=== PATIENT | male | born 1990 | race Caucasian/White ===

== ENCOUNTER 2017-03-04 14:41 | Emergency (ER) | payer SELFPAY ==
[2017-03-04 14:49] VITALS: BP 155/87; BMI 28.5
--- NOTE | 2017-03-04 17:33 | DR.GENAD ---
HPI - PCP Primary Care Physician: JOSE - HPI Comment HPI Comment: WORSE TODAY. NO FEVER. NO COUGH, CONGESTION OR DYSURIA. - Complaint/Symptoms Chief Complaint Doctors Comments: CHEST PAIN, BODYACHES, DIZZINESS TIMES FOR FEW DAYS. Chief Complaint:: CHEST PAIN, DIZZY, BODY ACHES, HURTS WHEN TAKES DEEP BREATHE Self Treatment fo Chief Complaint: BEEN HAVING HEART BURN AND PAIN FOR ABOUT A MONTH - Nurses notes reviewed Nurses Notes Review: Yes - Source History Provided: Patient - Mode of Arrival Mode of Arrival: In Arms - Timing Onset of Chief Complaint: 03/02/17 Came on: Suddenly - Duration Duration: Constant Duration: Days - Severity Severity: Moderate PMH - PMH Past Medical History: Yes Past Medical History: Hypertension Past Surgical History: No Surgical History: No History - Family History History of Family Medical Conditions: Yes Family Medical History: Diabetes Mellitus, Hypertension - Social History Does patient currently use any type of tobacco product: Yes Have you used tobacco products in the last 12 months: Yes Type of Tobacco Use: Smokeless Does any household member use tobacco: Yes Alcohol Use: Occasionally Do you use any recreational Drugs:: No Lives With: Family Lives Where: Home - infectious screening In the last 2 months have you had wt loss of >10#?: NO Have you had fever, night sweats or hemotysis?: No Have you traveled outside the country in the last 6 months?: No Isolation: Standard ROS - Review of Systems Constitutional: No Symptoms Reported Eyes: No Symptoms Reported ENTM: No Symptoms Reported Respiratoy: No Symptoms Reported Cardiovascular: Chest Pain Gastrointestinal/Abdominal: No Symptoms Reported Genitourinary: No Symptoms Reported Neurological: No Symptoms Reported, Dizziness Musculoskeletal: No Symptoms Reported Integumentary: No Symptoms Reported Hematologic/Lymphatic: No Symptoms Reported Endocrine: No Symptoms Reported All Other Systems: Reviewed and Negative PE - Vital Signs Vitals: Temperature 97.1 F Pulse Rate 79 Respiratory Rate 20 Blood Pressure 155/87 O2 Sat by Pulse Oximetry 100 - General Limitations: No Limitations General Appearance: Alert - Head Head Exam: Normal Inspection - Eyes Eye exam: Normal Appearance - ENT ENT Exam: Normal External Ear Exam External Ear Exam: Normal External Inspection TM/Canal Exam: Bilateral Normal Nose Exam: Normal Nose Exam Mouth Exam: Normal Inspection Throat Exam: Normal Inspection - Neck Neck Exam: Normal Inspection - Chest Chest Inspection: Symmetric Chest Wall Rise - Respiratory Respiratory Exam: Normal Lung Sounds Bilat Respiratory Exam: Bilateral Clear to Auscultation - Cardiovascular Cardiovascular Exam: Regular Rate, Normal Rhythm, Normal Heart Sounds - Abdominal Exam Abdominal Exam: Normal Bowel Sounds, Soft. negative: Tenderness - Extremities Extremities Exam: Normal Inspection - Back Back Exam: Normal Inspection - Neurologic Neurological Exam: Alert, Oriented X3 - Skin Skin Exam: Normal Color MDM - Additional Information Additional Information Obtained From: Family - Differential Diagnosis Differential Diagnosis: CHEST PAIN, FL, PE, PNEUMONIA, DIZZINESS Course - Treatment Treatment: SEE ORDERS. - Education/Counseling Education/Counseling: Patient, Family, Education Educated On: Treatment, Diagnosis, Needs for Follow Up ROR - Labs Reviewed Laboratory Results Reviewed?: Yes Result Diagrams: 03/04/17 17:44 03/04/17 17:44 Laboratory: WBC 7.6 X10^3/uL (3.6-10.0) 03/04/17 17:44 RBC 5.20 X10^6/uL (4.7-6.0) 03/04/17 17:44 Hgb 15.7 g/dL (13.5-18.0) 03/04/17 17:44 Hct 45.2 % (42.0-54.0) 03/04/17 17:44 MCV 86.9 fL (80.0-100.0) 03/04/17 17:44 MCH 30.1 pg (27.0-34.0) 03/04/17 17:44 MCHC 34.7 g/dL (33.0-35.0) 03/04/17 17:44 RDW 13.1 % (11.6-16.5) 03/04/17 17:44 Plt Count 263 X10^3/uL (150.0-450.0) 03/04/17 17:44 MPV 8.6 fL (7.4-11.0) 03/04/17 17:44 Neut % 59.8 % (42.0-75.0) 03/04/17 17:44 Lymph % 29.2 % (21.0-51.0) 03/04/17 17:44 [place] % 8.1 % (0.0-13.0) 03/04/17 17:44 Eos % 2.0 % (0.9-2.9) 03/04/17 17:44 Baso % 0.9 % (0.2-1.0) 03/04/17 17:44 Neut # 4.5 x10^3/uL (2.2-4.8) 03/04/17 17:44 Lymph # 2.2 X10^3/uL (1.3-2.9) 03/04/17 17:44 [place] # 0.6 x10^3/uL (0.3-0.8) 03/04/17 17:44 Eos # 0.2 x10^3/uL (0.0-0.2) 03/04/17 17:44 Baso # 0.1 X10^3/uL (0.0-0.1) 03/04/17 17:44 Absolute Nucleated RBC 0.1 /100WBC 03/04/17 17:44 D-Dimer < 100 ng/mL (0-400) 03/04/17 17:44 Sodium 142 mmol/L (136-145) 03/04/17 17:44 Corrected Sodium TNP 03/04/17 17:44 Potassium 3.8 mmol/L (3.5-5.1) 03/04/17 17:44 Chloride 103 mmol/L (98-107) 03/04/17 17:44 Carbon Dioxide 27.4 mmol/L (21-32) 03/04/17 17:44 BUN 8 mg/dL (7-18) 03/04/17 17:44 Creatinine 1.09 mg/dL (0.70-1.30) 03/04/17 17:44 Est GFR (MDRD) Af Amer > 60 (>60) 03/04/17 17:44 Est GFR (MDRD) Non-Af > 60 (>60) 03/04/17 17:44 Glucose 90 mg/dL (65-99) 03/04/17 17:44 Calcium 8.8 mg/dL (8.5-10.1) 03/04/17 17:44 Corrected Calcium TNP 03/04/17 17:44 Total Bilirubin 0.40 mg/dL (0.2-1.0) 03/04/17 17:44 AST 24 Units/L (15-37) 03/04/17 17:44 ALT 30 Units/L (12-78) 03/04/17 17:44 Alkaline Phosphatase 72 Units/L (46-116) 03/04/17 17:44 Creatine Kinase 243 Units/L (39-308) 03/04/17 17:44 CK-MB (CK-2) 2.2 ng/mL (0-4.0) 12 17:44 CK/CKMB % Calc 0.9 % (<4) 03/04/17 17:44 Troponin I < 0.02 ng/mL (0-1.5) 03/04/17 17:44 Total Protein 7.5 g/dL (6.4-8.2) 03/04/17 17:44 Albumin 4.1 g/dL (3.4-5.0) 03/04/17 17:44 Globulin 3.4 g/dL (2.5-4.5) 03/04/17 17:44 Albumin/Globulin Ratio 1.2 Ratio (1.1-2.1) 03/04/17 17:44 H. pylori IgG Antibody Negative (NEGATIVE) 03/04/17 17:44 - XRAY XRAY Interpreted by: Radiologist XRAY Findings: REPORT DISCUSS WITH PATIENT. - EKG Rhythm: NSR (EKG NOTED) - Diagnosis Discharge Problem: Dizziness Chest pain Qualifiers: Chest pain type: unspecified Qualified Code(s): R07.9 - Chest pain, unspecified - Discharge Plan Disposition: HOME, SELF-CARE Condition: Stable Prescriptions: Ibuprofen [MOTRIN TAB 800 MG *] 800 mg PO Q8H PRN #20 tab PRN Reason: Pain/Inflammation Ranitidine HCl [ZANTAC TAB 150 MG *] 150 mg PO BID #20 tab - Follow ups/Referrals Follow ups/Referrals: PAUL MYERS [Primary Care Provider] - 3 days - Instructions Instructions: Dizziness, [id number], Chest Pain Observation Additional Instructions: RETURN TO ED IF WORSE.
[2017-03-04] MEDS ORDERED: PEPCID TAB 20 MG PO ONE (17:39)
[2017-03-04] MEDS ORDERED: PEPCID TAB 20 MG ONE (17:42)
[2017-03-04] MEDS ORDERED: ASPIRIN 81 MG CHEWTAB ONE (17:42)
[2017-03-04 17:51] LABS: BASOPHILS # (AUTO) 0.1 X10^3/uL (0.0-0.1); BASOPHILS % (AUTO) 0.9 % (0.2-1.0); EOSINOPHILS # (AUTO) 0.2 x10^3/uL (0.0-0.2); HEMATOCRIT 45.2 % (42.0-54.0); HEMOGLOBIN 15.7 g/dL (13.5-18.0); LYMPHOCYTES # (AUTO) 2.2 X10^3/uL (1.3-2.9); LYMPHOCYTES % (AUTO) 29.2 % (21.0-51.0); MEAN CORPUSCULAR HEMOGLOBIN 30.1 pg (27.0-34.0); MEAN CORPUSCULAR HGB CONC 34.7 g/dL (33.0-35.0); MEAN CORPUSCULAR VOLUME 86.9 fL (80.0-100.0); MEAN PLATELET VOLUME 8.6 fL (7.4-11.0); MONOCYTES # (AUTO) 0.6 x10^3/uL (0.3-0.8); MONOCYTES % (AUTO) 8.1 % (0.0-13.0); NEUTROPHILS # (AUTO) 4.5 x10^3/uL (2.2-4.8); NEUTROPHILS % (AUTO) 59.8 % (42.0-75.0); PLATELET COUNT 263 X10^3/uL (150.0-450.0); RED CELL DISTRIBUTION WIDTH 13.1 % (11.6-16.5); WHITE BLOOD COUNT 7.6 X10^3/uL (3.6-10.0)
--- NOTE | 2017-03-04 17:58 | RAD ---
Examination: Portable AP chest History: Chest pain, pain on respiration Comparison reference: 05/08/2015 Findings: Continued normal heart size with clear lungs and pleural spaces. Impression: No change; no acute disease. Reported By:
[2017-03-04 18:11] LABS: BLOOD UREA NITROGEN 8 mg/dL (7-18); CALCIUM 8.8 mg/dL (8.5-10.1); CARBON DIOXIDE 27.4 mmol/L (21-32); CHLORIDE 103 mmol/L (98-107); CREATININE 1.09 mg/dL (0.70-1.30); SODIUM 142 mmol/L (136-145); TROPONIN I < 0.02 ng/mL (0-1.5); eGFR BLACK RACES > 60 (>60); eGFR NON BLACK RACES > 60 (>60)
[2017-03-04 18:16] LABS: ALANINE AMINOTRANSFERASE 30 Units/L (12-78); ALBUMIN 4.1 g/dL (3.4-5.0); ALKALINE PHOSPHATASE 72 Units/L (46-116); ASPARTATE AMINO TRANSFERASE 24 Units/L (15-37); CKMB % 0.9 % (<4); CREATINE KINASE 243 Units/L (39-308); CREATINE KINASE MB 2.2 ng/mL (0-4.0); TOTAL PROTEIN 7.5 g/dL (6.4-8.2)
--- NOTE | 2017-03-04 20:28 | CT ---
CT brain without contrast Indication: Chest pain with dizziness and body aches Comparison: None available Technique: Multiple axial images of the brain were obtained from the skull base to the vertex without administra tion of IV contrast. Findings: No acute intraparenchymal hemorrhage or mass can be identified. No extra-axial fluid collections are seen. No alteration in the attenuation of the brain parenchyma can be identified to suggest acute o r subacute ischemic change. The ventricular system is symmetric and nondilated. The extracranial st ructures are grossly unremarkable. A radha cisterna magna is incidentally noted. IMPRESSION: 1. No acute intracranial process is identified. Reported By:
[2017-03-05] MEDS ORDERED: ASPIRIN 81 MG CHEWTAB PO ONE (17:38)
== END 2017-03-04 20:53 | disposition home or self-care (01) ==
LOC: ER 14:41
DX: R07.89 Other chest pain (principal); R42 Dizziness and giddiness
CPT/HCPCS: 36415; 70450; 71010; 80053; 82550; 82553; 84484; 85025; 85378; 86677; 93005; 93010; 99282; 99283; 99285